=== PATIENT | female | born 1970 | race Caucasian/White ===

== ENCOUNTER 2025-07-03 00:46 | Outpatient (BNV) | payer OTHER, SELFPAY | END 2025-07-04 08:00 | PROVIDERS: Admitting Provider Psychiatry & Neurology Psychiatry; Visit Provider Internal Medicine Cardiovascular Disease | DX: Z13.6 Encounter for screening for cardiovascular disorders (principal) | CPT/HCPCS: 93010 ==

== ENCOUNTER 2025-07-03 00:46 | Inpatient (IN) | payer OTHER, SELFPAY ==
--- NOTE | ~2025-07-03 | XR_ITS ---
CLINICAL HISTORY: abd pain and constipation Single view of the abdomen. COMPARISON: None provided. FINDINGS: Surgical clips present along the pelvis at midline and on the left. Cholecystectomy clips. Normal bowel gas distention. No abnormal calcifications. No pneumoperitoneum identified. Moderate to large colonic stool burden. Vista left curvature of the mid lumbar spine. Moderate to advanced multilevel spondylosis. IMPRESSION: 1. Nonspecific nonobstructive bowel gas pattern. 2. Owbjmyut-wv-uumsd colonic stool burden. This document has been electronically signed by: Omar Baltazar MD on 07/07/2025 13:19:33
--- NOTE | ~2025-07-03 | US_ITS ---
CLINICAL HISTORY: bilateral LE edema. left worse than right Venous duplex ultrasound bilateral lower extremity COMPARISON: None provided. FINDINGS: The visualized deep veins are fully compressible with normal Doppler color flow and spectral tracings. No popliteal cyst. Mildly prominent but otherwise morphologically normal lymph nodes with normal fatty hilum present within the bilateral groin. IMPRESSION: 1. Negative for bilateral lower extremity deep vein thrombosis. This document has been electronically signed by: Omar Baltazar MD on 07/07/2025 13:52:10
--- OUTSIDE RECORDS SUMMARY | 2025-07-03 00:52 | XMS_ITS | Encounter Summary ---
Author Organization [facility] Address [address] [place] [address] Care Team Providers Care Rate Reviewer Name Role Phone Fly Patel MD Primary Care Provider + Suha Thompson Primary Care Provider [phone] Encounter Details Date Type Department Care Team (Late st Contact Info) Description 01/27/2007 Orders Only [facility] [address] [place] [id number] Rashmi Reina MD [address] [id number] Social History Tobacco Use Types Packs/Day Years Used Date Smoking Tobacco: Never Assessed Comments Unknown Sex and Gender Information Value Date Recorded Sex Assigned at Not on file Legal Sex Female 10:12 PM EDT Gender Identity Not on file Sexual Orientation Not on file documented as of this encounter Plan of Treatment Not on file documented as of this encounter Visit Diagnoses Not on filedocumented in this encounter Care Teams Rate Reviewer Relationship Specialty Start Date End Date Fly Patel MD PCP - General 03/08/06 11/11/17 Suha Thompson [address] [place] [id number] PCP - General Family Medicine 11/12/17 documented as of this encounter
--- OUTSIDE RECORDS SUMMARY | 2025-07-03 00:52 | XMS_ITS | Clinical Summary ---
Author Organization [facility] Address [address] [place] [address] Care Team Providers Care Archaeologist Name Role Phone Suha Thompson Primary Care Provider [phone] Allergies No known active allergies Medications HydroCHLOROthia zide 12.5 MG Cap 1 CAPSULE DAILY Active Topiramate (TOPAMAX) 100 MG Tab 1 TABLET TWICE DAILY Active Vortioxetine HBr (TRINTELLIX) 10 MG Tab 1 TABLET DAILY Active Omeprazole 10 MG CAPSULE DELAYED RELEASE 1 CAPSULE DAILY Active Buprenorphine HCl-Naloxone HCl (SUBOXONE) 12-3 MG FILM 1 CAPSULE DAILY Active BuPROPion HCl (WELLBUTRIN) 100 MG Tab 1 TABLET 3 TIMES DAILY Active ALPRAZolam 0.25 MG Tab TK 1 T PO QD PRN 1 11/03/2017 Active Active Problems No known active problems Social History Tobacco Use Types Packs/Day Years Used Date Smoking Tobacco: Former Smokeless Tobacco: Never Comments No Sex and Gender Information Value Date Recorded Sex Assigned at Not on file Legal Sex Female 10:12 PM EDT Gender Identity Not on file Sexual Orientation Not on file Last Filed Vital Signs Vital Sign Reading Time Taken Comments Blood Pressure 116/78 11/12/2017 5:55 PM EST Pulse 73 11/12/2017 5:55 PM EST Temperature 37.1 C (98.8 F) 11/12/2017 5:55 PM EST Respiratory Rate 16 11/12/2017 5:55 PM EST Oxygen Saturation - - Inhaled Oxygen Concentration - - Weight - - Height - - Body Mass Index - - Plan of Treatment Health Maintenance Due Date Last Done Comments Pap Smear 1985 DTaP/Tdap/Td (1 - Tdap) 1987 Hep B (1 of 3 - 19+ 3-dose series) 1988 Mammogram/Breast Imaging 2009 Pneumococcal 50+ years (1 of 1 - PCV) 2019 Zoster (Shingrix) (1 of 2) 2019 COVID-19 Vaccine (1 - 2024-2 6 season) 2025 Influenza (#1) 2025 Hepatitis C Screening Completed 03/08/2006 HPV Vaccine (No Doses Required) Completed Hep A Aged Out No longer eligi ble based on patient's age to complete this topic Hib Aged Out No longer eligi ble based on patient's age to complete this topic Meningococcal ACWY Aged Out No longer eligible based on patient's age to complete this topic Procedures * Due to [place] law, this organization might not be sharing negative HIV tests. Procedure Name Priority Date/Time Associated Diagnosis Comments HEPATITIS C ANTIBODY (EIA-2) Routine 03/08/2006 4:53 PM EDT from Last 3 Months or Most Recently Relevant to Health Maintenance Results * Due to [place] law, this organization might not be sharing negative HIV tests. * (ABNORMAL) HEPATITIS C ANTIBODY, SERUM (03/08/2006 4:53 PM EDT) HEPATITIS C AB REACTIVE(A ) NON-REACTI VE [facility] (CLIA# [id number]) 03/08/2006 4:53 PM EDT 03/08/2006 11:20 PM EDT Narrative [facility] (CLIA# [id number]) - 03/09/2006 7:52 AM EDT RANDOM Fly Patel MD LABORATORY Final Re sult [facility] (CLIA# [id number]) [address] [place] [address] from Last 3 Months or Most Recently Relevant to Health Maintenance Insurance MEDICAID Care Teams Archaeologist Relationship Specialty Start Date End Date Suha Thompson [address] [place] [address] [id number] PCP - General Family Medicine 11/12/17
[2025-07-03 01:10] VITALS: BP 154/97; PULSE 105; RESP 16; TEMP 36.5; O2SAT 94
[2025-07-03 01:15] VITALS: BMI 33.2
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
[2025-07-03 08:42] LABS: Alanine Aminotransferase 12 U/L (0-31); Albumin Level 4.4 g/dL (3.5-5.0); Alkaline Phosphatase 68 U/L (39-117); Anion Gap 12 (12-20); Aspartate Amino Transferase 23 U/L (5-31); Blood Urea Nitrogen 16 mg/dL (9-16); Calcium 9.4 mg/dL (8.4-10.2); Carbon Dioxide 24 mmol/L (22-29); Chloride 109 mmol/L (96-108); Cholesterol 148 mg/dL (<200); Creatinine Clr Calc Pharmacy 87.6; Estimated Glomerular Filt Rate > 60; HDL Cholesterol 47 mg/dL (>40); Potassium 3.8 mmol/L (3.3-5.1); Sodium 141 mmol/L (135-145); Total Protein 8.0 g/dL (6.5-8.0); Triglycerides 66 mg/dL (<150)
[2025-07-03 08:45] VITALS: BP 127/76; PULSE 86; RESP 14; TEMP 36.1; O2SAT 97
[2025-07-03 09:39] LABS: Free T4 (Free Thyroxine) 0.97 ng/dL (0.71-1.85)
--- NOTE | 2025-07-03 09:59 | ECG_ITS ---
Test Reason : S/P OD Blood Pressure : */* mmHG Vent. Rate : 98 BPM Atrial Rate : 98 BPM P-R Int : 178 ms QRS Dur : 96 ms QT Int : 388 ms P-R-T Axes : 70 11 67 degrees QTcB Int : 495 ms Normal sinus rhythm Prolonged QT Abnormal ECG No previous ECGs available Referred By: Camilo Rosenberg Electronically Signed By: MONA GORDILLO MD
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
[2025-07-03] MEDS: buPROPion HCl XL 300 MG TAB.ER.24H PO (11:25)
[2025-07-03 11:43] LABS: Magnesium 2.0 mg/dL (1.6-2.6)
[2025-07-03] MEDS: Dextroamphetamine/Amphetamine XR 10 MG CAP.ER.24H 30 MG PO (14:12)
--- NOTE | 2025-07-03 14:13 | PC.NURSE ---
Pt received catracho Adderall at 1413 d/t unavailability in the pyxus.
[2025-07-03] MEDS: Buprenorphine/Naloxone 4/1 mg FILM 1 FILM SUBLINGUAL ×2 (14:43→21:16)
[2025-07-03 15:17] LABS: Cannabinoid Screen Urine Not Detected (Not Detect)
[2025-07-03 20:00] VITALS: BP 119/76; PULSE 93; RESP 16; TEMP 36.9; O2SAT 98
[2025-07-03] MEDS: Magnesium Hydrox/Alum Hydrox 30 ML ORAL.SUSP PO (21:19)
--- NOTE | 2025-07-04 02:51 | PC.NURSE ---
Pt came to the nurses station to get help for her roommate. Upon entering the patient's room this nurse found a brown vape pen in the patient's bed. When asked the pt confirmed that the vape pen belonged to her. The pt would not state when and how she came in position of the vape pen. The pt was educated that the vape pen is contraband and that it will be removed from the unit and secured in the security off. The pt was notified that she can retrieve the vape pen from the security office upon discharge.
[2025-07-04 07:55] VITALS: BP 123/77; PULSE 74; RESP 18; TEMP 36.6; O2SAT 95
--- NOTE | 2025-07-04 08:00 | ECG_ITS ---
Test Reason : CHECK QT Blood Pressure : */* mmHG Vent. Rate : 78 BPM Atrial Rate : 78 BPM P-R Int : 142 ms QRS Dur : 90 ms QT Int : 392 ms P-R-T Axes : 67 8 53 degrees QTcB Int : 446 ms Normal sinus rhythm with sinus arrhythmia Normal ECG When compared with ECG of 03-Jul-2025 10:19, No significant change was found Referred By: Camilo Rosenberg Electronically Signed By: MONA GORDILLO MD
[2025-07-04] MEDS: Dextroamphetamine/Amphetamine XR 10 MG CAP.ER.24H 30 MG PO (08:01)
[2025-07-04] MEDS: Buprenorphine/Naloxone 4/1 mg FILM 1 FILM SUBLINGUAL ×2 (08:01→21:21)
[2025-07-04] MEDS: buPROPion HCl XL 300 MG TAB.ER.24H PO (08:02)
[2025-07-04] MEDS: Lidocaine 4 % Patch ADH..PATCH 1 PATCH TRANSDERMA (08:13)
[2025-07-04 08:45] LABS: Folate 6.7 ng/mL (> or = 4.0); Vitamin B12 362 pg/mL (200-900)
--- NOTE | 2025-07-04 13:28 | PC.NURSE ---
RN received report from Mikey MORE at 1325, pt being transferred to M3.
--- NOTE | 2025-07-04 13:37 | PC.NURSE ---
N2N report was given to Mickie nurse on M3. Patient transferred to M3 with her belongings, tablet no charge, red wallet and vape by security.
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
[2025-07-04 20:10] VITALS: BP 110/68; PULSE 99; RESP 20; TEMP 36.6; O2SAT 96
[2025-07-05] MEDS: Magnesium Hydrox/Alum Hydrox 30 ML ORAL.SUSP PO (00:43)
[2025-07-05 07:30] VITALS: BP 137/84; PULSE 106; RESP 14; TEMP 36.1; O2SAT 92
[2025-07-05] MEDS: Dextroamphetamine/Amphetamine XR 10 MG CAP.ER.24H 30 MG PO ×2 (09:02→14:30)
[2025-07-05] MEDS: buPROPion HCl XL 300 MG TAB.ER.24H PO (09:04)
[2025-07-05] MEDS: Buprenorphine/Naloxone 4/1 mg FILM 1 FILM SUBLINGUAL ×2 (09:07→20:16)
[2025-07-05] MEDS: Lidocaine 4 % Patch ADH..PATCH 1 PATCH TRANSDERMA (09:09)
--- NOTE | 2025-07-05 11:25 | PC.NURSE ---
Alberta declined flu vaccine
[2025-07-05 16:34] LABS: Lipase 24 U/L (8-78)
[2025-07-05 16:51] LABS: Ferritin 36 ng/mL (10-250); Thyroid Stimulating Hormone 2.45 uIU/mL (0.32-4.0)
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
[2025-07-05 17:25] LABS: Iron 47 mcg/dL (30-160); Percent Iron Saturation 15 % (15-50); Total Iron Binding Capacity 315 mcg/dL (228-428); Unsaturated Iron Binding 268 ug/dL
[2025-07-05 20:00] VITALS: BP 177/133; PULSE 97; RESP 16; TEMP 36; O2SAT 95
[2025-07-05 20:10] VITALS: BP 112/68; PULSE 96; RESP 16; TEMP 36; O2SAT 95
[2025-07-06 07:38] VITALS: BP 120/81; PULSE 102; RESP 16; TEMP 36.2; O2SAT 95
[2025-07-06 07:58] LABS: MANUAL DIFF FLAG NO
[2025-07-06 08:25] LABS: Hematocrit 36.4 % (37.0-47.0); Hemoglobin 11.2 g/dl (12.0-16.0); Imm Gran Abs Auto 0.02 X10*3/uL (0.00-0.03); Imm Gran Pct Auto 0.3 % (0.0-0.4); Lymphocytes Absolute Auto 1.9 X10*3/uL (1.2-4.9); Mean Corpuscular HGB Conc 30.8 g/dl (31.0-35.0); Mean Corpuscular Hemoglobin 27.9 pg (27.0-33.0); Mean Corpuscular Volume 90.5 fL (80.0-98.0); NRBC Abs Auto 0.000 X10*3/uL (0.0-0.012); NRBC Pct Auto 0.0 /100WBC (0.0-0.2); Platelet Count 300 X10*3/uL (160-400); Red Blood Count 4.02 X10*6/uL (4.20-5.50); White Blood Count 6.6 X10*3/uL (4.8-10.8)
[2025-07-06] MEDS: Dextroamphetamine/Amphetamine XR 10 MG CAP.ER.24H 30 MG PO ×2 (08:32→14:05)
[2025-07-06] MEDS: buPROPion HCl XL 300 MG TAB.ER.24H PO (08:33)
[2025-07-06] MEDS: Buprenorphine/Naloxone 4/1 mg FILM 1 FILM SUBLINGUAL ×2 (08:34→20:54)
--- NOTE | 2025-07-06 10:03 | PC.NURSE ---
On 07/04 gave Suboxone earlier upon patients request.
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
[2025-07-06 21:00] VITALS: BP 118/73; PULSE 93; RESP 18; TEMP 36.4; O2SAT 96
[2025-07-07 08:16] VITALS: BP 140/79; PULSE 95; RESP 16; TEMP 36.2; O2SAT 94
[2025-07-07] MEDS: buPROPion HCl XL 300 MG TAB.ER.24H PO (08:26)
[2025-07-07] MEDS: Dextroamphetamine/Amphetamine XR 10 MG CAP.ER.24H 30 MG PO ×2 (08:27→14:05)
[2025-07-07] MEDS: Buprenorphine/Naloxone 4/1 mg FILM 1 FILM SUBLINGUAL ×2 (08:27→20:40)
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
[2025-07-07 13:34] LABS: Erythrocyte Sedimentation Rate 60 MM/HR (0-20)
[2025-07-07 15:11] LABS: Total Protein Urine Random < 7 mg/dL (<12)
[2025-07-07 19:47] VITALS: BP 120/73; PULSE 96; RESP 16; TEMP 36.6; O2SAT 95
--- NOTE | 2025-07-08 08:10 | PM.EVENT ---
Event Note Date of Service: 07/08/25 Event Note: 54 year old women with a hx of Lower extremity edema. Seen and examined yesterday for LE edema and erythema. No infection so no indication of cellulitis, venous doppler negative for DVT, normal proteins in urine so unlikely nephrotic syndrome, normal BNP so no fluid overload. Discoloration likely from the swelling and seems to look better than yesterday. Flat, patchy red areas, no pruritis or opens wounds Plan Elevate extremities Compression therapy with BETH stockings one low dose of lasix 20 mg now Time Spent With Patient Time: Total time managing care of this patient today ____ minutes.
[2025-07-08 08:12] VITALS: BP 135/74; PULSE 94; RESP 18; TEMP 36; O2SAT 97
[2025-07-08] MEDS: Dextroamphetamine/Amphetamine XR 10 MG CAP.ER.24H 30 MG PO ×2 (08:13→14:38)
[2025-07-08] MEDS: buPROPion HCl XL 300 MG TAB.ER.24H PO (08:14)
[2025-07-08] MEDS: Buprenorphine/Naloxone 4/1 mg FILM 1 FILM SUBLINGUAL ×2 (08:15→20:49)
[2025-07-08] MEDS: Milk of Magnesia 30 ML ORAL.SUSP PO (08:17)
[2025-07-08 08:25] VITALS: BP 135/74; PULSE 94; RESP 18; TEMP 36; O2SAT 97
[2025-07-08 09:10] LABS: NT Pro B Type Natriuretic Pept 75.5 pg/mL (<300)
[2025-07-08 10:08] VITALS: BP 109/79; PULSE 96
--- NOTE | 2025-07-08 11:07 | P.PNPSI_ITS ---
Subjective Subjective Date of Service: 07/08/25 Reason For Visit: ptsd,si,mood disorder Subjective Notes: Conditional Voluntary Interim History: Patient was seen and discussed in rounds today. Records and plans were reviewed. She did sleep better with the increase of doxepin to 75 mg. She had 2 episodes of bedwetting. She was seen by the hospitalist yesterday for her leg swelling and DVT ruled out. She also has been observed to be more alert in the morning prior to taking her medications and then becoming sedated and tired. I discussed with her my concerns and will decrease her Valium to 2 mg t.i.d., cutting it in half. No SI. No other changes Review of Systems Review of Systems Lower extremity swelling specially on the left side Yes all other systems are reviewed and are negative Mental Status Exam Mental Status Exam Narrative: In today's visit she is somewhat drowsy, oriented and pleasant. Normal speech. Moderate eye contact. Appropriate affect. No acute signs of psychosis. No AVH. No SI. Cognitively is intact. Judgment is intact. Diagnostics Vital Signs (24Hr): Vital Signs - 24 hr 07/07/25 19:47 07/08/25 08:12 07/08/25 08:25 Temperature 97.8 F 96.8 F 96.8 F Pulse Rate 96 94 94 Respiratory Rate 16 18 18 Blood Pressure 120/73 135/74 135/74 Pulse Oximetry 95 97 97 Oxygen Delivery Method Room Air Room Air Room Air 07/08/25 10:08 Temperature Pulse Rate 96 Respiratory Rate Blood Pressure 109/79 Pulse Oximetry Oxygen Delivery Method BMI result Body Mass Index 33.2 Labs 07/06/25 07:49 07/03/25 08:00 Labs: Laboratory Results - last 48 hr 07/07/25 07/07/25 07/08/25 12:23 14:30 08:42 ESR 60 H NT-Pro-B Natriuret Pep 75.5 U Random Total Protein < 7 Medications Medications Current Medications Acetaminophen (Acetaminophen 325 Mg Tablet) 650 mg PO Q6H PRN PRN Reason: Headache/Pain, Scale 1-10 Last Admin: 07/07/25 20:43 Dose: 650 mg Al Hydroxide/Mg Hydroxide (Magnesium Hydrox/Alum Hydrox 30 Ml Oral.Susp) 30 ml PO Q6H PRN PRN Reason: Heartburn/Nausea Last Admin: 07/05/25 00:43 Dose: 30 ml Albuterol Sulfate (Albuterol Sulfate 90 Mcg 8 Gm Inhaler) 2 puff INHALE RQ4H PRN PRN Reason: Shortness of Breath/Wheezing Amphetamine/Dextroamphetamine (Dextroamphetamine/Amphetamine Xr 10 Mg Cap.Er.24h) 30 mg PO BID@0830,1430 [facility] Last Admin: 07/08/25 08:13 Dose: 30 mg Buprenorphine/Naloxone (Buprenorphine/Naloxone 4/1 Mg Film) 1 film SUBLINGUAL BID [facility] Last Admin: 07/08/25 08:15 Dose: 1 film Bupropion HCl (Bupropion Hcl Xl 300 Mg Tab.Er.24h) 300 mg PO DAILY [facility] Last Admin: 07/08/25 08:14 Dose: 300 mg Calcium Carbonate (Calcium Carbonate 750 Mg Tab.Chew) 750 mg PO Q4H PRN PRN Reason: Heartburn Last Admin: 07/07/25 18:18 Dose: 750 mg Diazepam (Diazepam 2 Mg Tablet) 2 mg PO TID [facility] Docusate Sodium (Docusate Sodium 100 Mg Capsule) 100 mg PO BID [facility] Last Admin: 07/08/25 08:14 Dose: 100 mg Doxepin HCl (Doxepin Hcl 25 Mg Capsule) 75 mg PO BEDTIME [facility] Last Admin: 07/07/25 20:42 Dose: 75 mg Escitalopram Oxalate (Escitalopram Oxalate 20 Mg Tablet) 20 mg PO DAILY [facility] Last Admin: 07/08/25 08:15 Dose: 20 mg Gabapentin (Gabapentin 300 Mg Capsule) 300 mg PO BEDTIME [facility] Last Admin: 07/07/25 20:43 Dose: 300 mg Lamotrigine (Lamotrigine 25 Mg Tablet) 25 mg PO BEDTIME [facility] Last Admin: 07/07/25 20:43 Dose: 25 mg Lidocaine (Lidocaine 4 % Patch Adh..Patch) 1 patch TRANSDERMA DAILY [facility] Last Admin: 07/08/25 08:18 Dose: Not Given Magnesium Hydroxide (Milk Of Magnesia 30 Ml Oral.Susp) 30 ml PO DAILY PRN PRN Reason: Constipation Last Admin: 07/08/25 08:17 Dose: 30 ml Nicotine (Nicotine 21 Mg Patch.Td24) 21 mg TRANSDERMA DAILY PRN PRN Reason: smoking cessation Nicotine Polacrilex (Nicotine Polacrilex 2 Mg Gum) 4 mg BUCCAL Q2H PRN PRN Reason: Nicotine Cravings Omeprazole (Omeprazole 20 Mg Capsule.Dr) 20 mg PO BID@0630,1630 [facility] Last Admin: 07/08/25 06:08 Dose: 20 mg Ondansetron HCl (Ondansetron Odt 4 Mg Tab.Rapdis) 4 mg TRANSLINGU Q4H PRN PRN Reason: Nausea and Vomiting Last Admin: 07/05/25 20:18 Dose: 4 mg Senna (Sennosides 8.6 Mg Tablet) 8.6 mg PO DAILY PRN PRN Reason: Constipation Topiramate (Topiramate 25 Mg Tablet) 50 mg PO BID [facility] Last Admin: 07/08/25 08:15 Dose: 50 mg Trazodone HCl (Trazodone Hcl 50 Mg Tablet) 50 mg PO BEDTIME MRX1 PRN PRN Reason: Insomnia Last Admin: 07/07/25 20:43 Dose: 50 mg Allergies Allergies Allergy/AdvReac Type Severity Reaction Status Date / Time lisinopril Allergy Anaphylaxis Verified 07/03/25 02:48 Assessment & Plan Assessment & Plan (1) Bipolar 2 disorder: Status: Acute Code(s): F31.81 - Bipolar II disorder (2) Chronic post-traumatic stress disorder (PTSD): Status: Acute Code(s): F43.12 - Post-traumatic stress disorder, chronic Plan 54 year old women with LE edema and abdominal pain with associated nausea Abd pain and constipation KUB showing stool burden Try mag citrate and continue colace LE edema No pain Edema and patchy erythema CRP and ESR pending Check BNP check UA tot protein LE erythema could be from fluid to LE no itchiness, open areas does not appear to be cellulitis 07/08: Continue current regimen and plans. Decrease Valium to 2 mg t.i.d. Patient educated on: medication risk/benefits Reason for continued inpatient stay Substantial Risk for: med/psych decompensation Time Spent With Patient Time: Total time managing care of this patient today ____ minutes.
[2025-07-08] MEDS: Nicotine Polacrilex Lozenge 4 MG LOZENGE BUCCAL (16:55)
[2025-07-08 20:00] VITALS: BP 118/71; PULSE 105; RESP 16; TEMP 37; O2SAT 94
[2025-07-09 07:54] VITALS: BP 139/81; PULSE 90; RESP 20; TEMP 36.8; O2SAT 97
[2025-07-09] MEDS: buPROPion HCl XL 300 MG TAB.ER.24H PO (08:44)
[2025-07-09] MEDS: Dextroamphetamine/Amphetamine XR 10 MG CAP.ER.24H 30 MG PO ×2 (08:45→15:19)
[2025-07-09] MEDS: Buprenorphine/Naloxone 4/1 mg FILM 1 FILM SUBLINGUAL ×2 (08:47→21:12)
--- NOTE | 2025-07-09 09:09 | HO.PSYCHPN ---
Subjective Subjective Date of Service: 07/09/25 Reason For Visit: ptsd,si,mood disorder Subjective Notes: Conditional Voluntary Interim History: Patient was seen and discussed in rounds today. Records and plans were reviewed. She has been stable and is doing better. Her left leg swelling and edema is slightly improved but still visibly present. Eating and sleeping adequately. No behavioral issues. No SI. No changes were made today Review of Systems Review of Systems Lower extremity edema Yes all other systems are reviewed and are negative Mental Status Exam Mental Status Exam Narrative: In today's visit she is somewhat drowsy, oriented and pleasant. Normal speech. Moderate eye contact. Appropriate affect. No acute signs of psychosis. No AVH. No SI. Cognitively is intact. Judgment is intact. Diagnostics Vital Signs (24Hr): Vital Signs - 24 hr 07/08/25 10:08 07/08/25 20:00 07/09/25 07:54 Temperature 98.6 F 98.2 F Pulse Rate 96 105 H 90 Respiratory Rate 16 20 Blood Pressure 109/79 118/71 139/81 Pulse Oximetry 94 97 Oxygen Delivery Method Room Air Room Air BMI result Body Mass Index 33.2 Labs 07/06/25 07:49 07/03/25 08:00 Labs: Laboratory Results - last 48 hr 07/07/25 07/07/25 07/08/25 12:23 14:30 08:42 ESR 60 H NT-Pro-B Natriuret Pep 75.5 U Random Total Protein < 7 Medications Medications Current Medications Acetaminophen (Acetaminophen 325 Mg Tablet) 650 mg PO Q6H PRN PRN Reason: Headache/Pain, Scale 1-10 Last Admin: 07/07/25 20:43 Dose: 650 mg Al Hydroxide/Mg Hydroxide (Magnesium Hydrox/Alum Hydrox 30 Ml Oral.Susp) 30 ml PO Q6H PRN PRN Reason: Heartburn/Nausea Last Admin: 07/05/25 00:43 Dose: 30 ml Albuterol Sulfate (Albuterol Sulfate 90 Mcg 8 Gm Inhaler) 2 puff INHALE RQ4H PRN PRN Reason: Shortness of Breath/Wheezing Amphetamine/Dextroamphetamine (Dextroamphetamine/Amphetamine Xr 10 Mg Cap.Er.24h) 30 mg PO BID@0830,1430 [facility] Last Admin: 07/09/25 08:45 Dose: 30 mg Buprenorphine/Naloxone (Buprenorphine/Naloxone 4/1 Mg Film) 1 film SUBLINGUAL BID [facility] Last Admin: 07/09/25 08:47 Dose: 1 film Bupropion HCl (Bupropion Hcl Xl 300 Mg Tab.Er.24h) 300 mg PO DAILY [facility] Last Admin: 07/09/25 08:44 Dose: 300 mg Calcium Carbonate (Calcium Carbonate 750 Mg Tab.Chew) 750 mg PO Q4H PRN PRN Reason: Heartburn Last Admin: 07/07/25 18:18 Dose: 750 mg Diazepam (Diazepam 2 Mg Tablet) 2 mg PO TID [facility] Last Admin: 07/09/25 08:45 Dose: 2 mg Docusate Sodium (Docusate Sodium 100 Mg Capsule) 100 mg PO BID [facility] Last Admin: 07/09/25 08:45 Dose: 100 mg Doxepin HCl (Doxepin Hcl 25 Mg Capsule) 75 mg PO BEDTIME [facility] Last Admin: 07/08/25 20:51 Dose: 75 mg Escitalopram Oxalate (Escitalopram Oxalate 20 Mg Tablet) 20 mg PO DAILY [facility] Last Admin: 07/09/25 08:44 Dose: 20 mg Gabapentin (Gabapentin 300 Mg Capsule) 300 mg PO BEDTIME [facility] Last Admin: 07/08/25 20:50 Dose: 300 mg Lamotrigine (Lamotrigine 25 Mg Tablet) 25 mg PO BEDTIME [facility] Last Admin: 07/08/25 20:51 Dose: 25 mg Magnesium Hydroxide (Milk Of Magnesia 30 Ml Oral.Susp) 30 ml PO DAILY PRN PRN Reason: Constipation Last Admin: 07/08/25 08:17 Dose: 30 ml Nicotine (Nicotine 21 Mg Patch.Td24) 21 mg TRANSDERMA DAILY PRN PRN Reason: smoking cessation Nicotine Polacrilex (Nicotine Polacrilex Lozenge 4 Mg Lozenge) 4 mg BUCCAL Q2H PRN PRN Reason: Nicotine Cravings Last Admin: 07/08/25 16:55 Dose: 4 mg Omeprazole (Omeprazole 20 Mg Capsule.Dr) 20 mg PO BID@0630,1630 [facility] Last Admin: 07/09/25 06:01 Dose: 20 mg Ondansetron HCl (Ondansetron Odt 4 Mg Tab.Rapdis) 4 mg TRANSLINGU Q4H PRN PRN Reason: Nausea and Vomiting Last Admin: 07/05/25 20:18 Dose: 4 mg Senna (Sennosides 8.6 Mg Tablet) 8.6 mg PO DAILY PRN PRN Reason: Constipation Topiramate (Topiramate 25 Mg Tablet) 50 mg PO BID [facility] Last Admin: 07/09/25 08:44 Dose: 50 mg Trazodone HCl (Trazodone Hcl 50 Mg Tablet) 50 mg PO BEDTIME MRX1 PRN PRN Reason: Insomnia Last Admin: 07/08/25 20:51 Dose: 50 mg Allergies Allergies Allergy/AdvReac Type Severity Reaction Status Date / Time lisinopril Allergy Anaphylaxis Verified 07/03/25 02:48 Assessment & Plan Assessment & Plan (1) Bipolar 2 disorder: Status: Acute Code(s): F31.81 - Bipolar II disorder (2) Chronic post-traumatic stress disorder (PTSD): Status: Acute Code(s): F43.12 - Post-traumatic stress disorder, chronic Plan 54 year old women with LE edema and abdominal pain with associated nausea Abd pain and constipation KUB showing stool burden Try mag citrate and continue colace LE edema No pain Edema and patchy erythema CRP and ESR pending Check BNP check UA tot protein LE erythema could be from fluid to LE no itchiness, open areas does not appear to be cellulitis 07/08: Continue current regimen and plans. Decrease Valium to 2 mg t.i.d. 07/09: Continue current regimen and plans. Reason for continued inpatient stay Substantial Risk for: med/psych decompensation Time Spent With Patient Time: Total time managing care of this patient today ____ minutes.
[2025-07-09 21:08] VITALS: BP 105/59; PULSE 100; RESP 18; TEMP 36.7; O2SAT 100
[2025-07-10 08:00] VITALS: BP 98/64; PULSE 82; RESP 18; TEMP 36.4; O2SAT 98
[2025-07-10] MEDS: Dextroamphetamine/Amphetamine XR 10 MG CAP.ER.24H 30 MG PO ×2 (08:34→15:19)
[2025-07-10] MEDS: buPROPion HCl XL 300 MG TAB.ER.24H PO (08:34)
[2025-07-10] MEDS: Buprenorphine/Naloxone 4/1 mg FILM 1 FILM SUBLINGUAL (08:35)
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
--- NOTE | 2025-07-10 08:37 | HO.PSYCHPN ---
Subjective Subjective Date of Service: 07/10/25 Reason For Visit: ptsd,si,mood disorder Diagnostics Vital Signs (24Hr): Vital Signs - 24 hr 07/09/25 21:08 Temperature 98.1 F Pulse Rate 100 Respiratory Rate 18 Blood Pressure 105/59 L Pulse Oximetry 100 Oxygen Delivery Method Room Air BMI result Body Mass Index 33.2 Labs 07/06/25 07:49 07/03/25 08:00 Labs: Laboratory Results - last 48 hr 07/07/25 07/08/25 12:23 08:42 C-React Prot High Sens >20.0 H NT-Pro-B Natriuret Pep 75.5 Medications Medications Current Medications Acetaminophen (Acetaminophen 325 Mg Tablet) 650 mg PO Q6H PRN PRN Reason: Headache/Pain, Scale 1-10 Last Admin: 07/10/25 06:13 Dose: 650 mg Al Hydroxide/Mg Hydroxide (Magnesium Hydrox/Alum Hydrox 30 Ml Oral.Susp) 30 ml PO Q6H PRN PRN Reason: Heartburn/Nausea Last Admin: 07/05/25 00:43 Dose: 30 ml Albuterol Sulfate (Albuterol Sulfate 90 Mcg 8 Gm Inhaler) 2 puff INHALE RQ4H PRN PRN Reason: Shortness of Breath/Wheezing Amphetamine/Dextroamphetamine (Dextroamphetamine/Amphetamine Xr 10 Mg Cap.Er.24h) 30 mg PO BID@0830,1430 [facility] Last Admin: 07/09/25 15:19 Dose: 30 mg Buprenorphine/Naloxone (Buprenorphine/Naloxone 4/1 Mg Film) 1 film SUBLINGUAL BID [facility] Last Admin: 07/09/25 21:12 Dose: 1 film Bupropion HCl (Bupropion Hcl Xl 300 Mg Tab.Er.24h) 300 mg PO DAILY [facility] Last Admin: 07/09/25 08:44 Dose: 300 mg Calcium Carbonate (Calcium Carbonate 750 Mg Tab.Chew) 750 mg PO Q4H PRN PRN Reason: Heartburn Last Admin: 07/07/25 18:18 Dose: 750 mg Diazepam (Diazepam 2 Mg Tablet) 2 mg PO TID [facility] Last Admin: 07/09/25 21:12 Dose: 2 mg Docusate Sodium (Docusate Sodium 100 Mg Capsule) 100 mg PO BID [facility] Last Admin: 07/09/25 21:13 Dose: Not Given Doxepin HCl (Doxepin Hcl 25 Mg Capsule) 75 mg PO BEDTIME [facility] Last Admin: 07/09/25 21:12 Dose: 75 mg Escitalopram Oxalate (Escitalopram Oxalate 20 Mg Tablet) 20 mg PO DAILY [facility] Last Admin: 07/09/25 08:44 Dose: 20 mg Gabapentin (Gabapentin 300 Mg Capsule) 300 mg PO BEDTIME [facility] Last Admin: 07/09/25 21:12 Dose: 300 mg Lamotrigine (Lamotrigine 25 Mg Tablet) 25 mg PO BEDTIME [facility] Last Admin: 07/09/25 21:12 Dose: 25 mg Magnesium Hydroxide (Milk Of Magnesia 30 Ml Oral.Susp) 30 ml PO DAILY PRN PRN Reason: Constipation Last Admin: 07/08/25 08:17 Dose: 30 ml Nicotine (Nicotine 21 Mg Patch.Td24) 21 mg TRANSDERMA DAILY PRN PRN Reason: smoking cessation Nicotine Polacrilex (Nicotine Polacrilex Lozenge 4 Mg Lozenge) 4 mg BUCCAL Q2H PRN PRN Reason: Nicotine Cravings Last Admin: 07/08/25 16:55 Dose: 4 mg Omeprazole (Omeprazole 20 Mg Capsule.Dr) 20 mg PO BID@0630,1630 [facility] Last Admin: 07/10/25 06:09 Dose: 20 mg Ondansetron HCl (Ondansetron Odt 4 Mg Tab.Rapdis) 4 mg TRANSLINGU Q4H PRN PRN Reason: Nausea and Vomiting Last Admin: 07/05/25 20:18 Dose: 4 mg Senna (Sennosides 8.6 Mg Tablet) 8.6 mg PO DAILY PRN PRN Reason: Constipation Topiramate (Topiramate 25 Mg Tablet) 50 mg PO BID [facility] Last Admin: 07/09/25 21:12 Dose: 50 mg Trazodone HCl (Trazodone Hcl 50 Mg Tablet) 50 mg PO BEDTIME MRX1 PRN PRN Reason: Insomnia Last Admin: 07/08/25 20:51 Dose: 50 mg Allergies Allergies Allergy/AdvReac Type Severity Reaction Status Date / Time lisinopril Allergy Anaphylaxis Verified 07/03/25 02:48 Assessment & Plan Assessment & Plan (1) Bipolar 2 disorder: Status: Acute Code(s): F31.81 - Bipolar II disorder (2) Chronic post-traumatic stress disorder (PTSD): Status: Acute Code(s): F43.12 - Post-traumatic stress disorder, chronic Plan 54 year old women with LE edema and abdominal pain with associated nausea Abd pain and constipation KUB showing stool burden Try mag citrate and continue colace LE edema No pain Edema and patchy erythema CRP and ESR pending Check BNP check UA tot protein LE erythema could be from fluid to LE no itchiness, open areas does not appear to be cellulitis 07/08: Continue current regimen and plans. Decrease Valium to 2 mg t.i.d. 07/09: Continue current regimen and plans. Time Spent With Patient Time: Total time managing care of this patient today ____ minutes.
--- NOTE | 2025-07-10 10:58 | P.PNIM_ITS ---
Subjective Subjective Date of Service: 07/10/25 Interval History: Patient continues to report increased pain and swelling to her left leg. Leg is painful, swelling as and redness or extending to behind the knee. Patient reports this has happened to her in the past and usually resolves on its own. She denies any fever or chills. Ultrasound was negative for DVT, workup negative for nephrotic syndrome, no evidence of fluid overload. Legs more painful and red per nursing. Per patient she is unable to bear weight as well, not wearing compression due to pain. Review of Systems Denies any shortness of breath, chest pain, headaches, dysuria, abdominal pain or discomfort, nausea, vomiting or diarrhea. Denies fever or chills Physical Exam 2 Exam: Exam: CONST: Alert and oriented, in NAD. Well nourished HEENT: Normocephalic, atraumatic, MMM, Eyes clear, Neck supple RESP: Lungs clear, RRR even and regular HEART:,RRR, S1, S2. No edema GI:Abdomen Soft NT, ND. + BS times four :Deferred SKIN: Warm dry and intact, no visible lesions or rashes NEURO:CN II-XII Intact bilaterally, Sensation intact. Speech clear PSYCH: Normal affect Extremities: Bilateral lower legs swelling, left greater than right positive redness and warmth and pain to left leg extending behind the knee Vital Signs: Vital Signs: Last Vital Signs Temp 98.1 F 07/09/25 21:08 Pulse 100 07/09/25 21:08 Resp 18 07/09/25 21:08 BP 105/59 L 07/09/25 21:08 Pulse Ox 100 07/09/25 21:08 O2 Del Method Room Air 07/09/25 21:08 BMI result Body Mass Index 33.2 Objective Data Active Medications Acetaminophen (Acetaminophen 325 Mg Tablet) 650 mg PO Q6H PRN PRN Reason: Headache/Pain, Scale 1-10 Last Admin: 07/10/25 06:13 Dose: 650 mg Documented By: SALMOD Al Hydroxide/Mg Hydroxide (Magnesium Hydrox/Alum Hydrox 30 Ml Oral.Susp) 30 ml PO Q6H PRN PRN Reason: Heartburn/Nausea Last Admin: 07/05/25 00:43 Dose: 30 ml Documented By: ANNETTE Albuterol Sulfate (Albuterol Sulfate 90 Mcg 8 Gm Inhaler) 2 puff INHALE RQ4H PRN PRN Reason: Shortness of Breath/Wheezing Amphetamine/Dextroamphetamine (Dextroamphetamine/Amphetamine Xr 10 Mg Cap.Er.24h) 30 mg PO BID@0830,1430 [facility] Last Admin: 07/10/25 08:34 Dose: 30 mg Documented By: MALLORY Buprenorphine/Naloxone (Buprenorphine/Naloxone 4/1 Mg Film) 1 film SUBLINGUAL BID [facility] Last Admin: 07/10/25 08:35 Dose: 1 film Documented By: MALLORY Bupropion HCl (Bupropion Hcl Xl 300 Mg Tab.Er.24h) 300 mg PO DAILY [facility] Last Admin: 07/10/25 08:34 Dose: 300 mg Documented By: MALLORY Calcium Carbonate (Calcium Carbonate 750 Mg Tab.Chew) 750 mg PO Q4H PRN PRN Reason: Heartburn Last Admin: 07/07/25 18:18 Dose: 750 mg Documented By: TOMER Diazepam (Diazepam 2 Mg Tablet) 2 mg PO TID [facility] Last Admin: 07/10/25 08:34 Dose: 2 mg Documented By: MALLORY Docusate Sodium (Docusate Sodium 100 Mg Capsule) 100 mg PO BID [facility] Last Admin: 07/10/25 08:34 Dose: 100 mg Documented By: MALLORY Doxepin HCl (Doxepin Hcl 25 Mg Capsule) 75 mg PO BEDTIME [facility] Last Admin: 07/09/25 21:12 Dose: 75 mg Documented By: MALLORY Escitalopram Oxalate (Escitalopram Oxalate 20 Mg Tablet) 20 mg PO DAILY [facility] Last Admin: 07/10/25 08:34 Dose: 20 mg Documented By: MALLORY Gabapentin (Gabapentin 300 Mg Capsule) 300 mg PO BEDTIME [facility] Last Admin: 07/09/25 21:12 Dose: 300 mg Documented By: MALLORY Lamotrigine (Lamotrigine 25 Mg Tablet) 25 mg PO BEDTIME [facility] Last Admin: 07/09/25 21:12 Dose: 25 mg Documented By: MALLORY Magnesium Hydroxide (Milk Of Magnesia 30 Ml Oral.Susp) 30 ml PO DAILY PRN PRN Reason: Constipation Last Admin: 07/08/25 08:17 Dose: 30 ml Documented By: TOMER Nicotine (Nicotine 21 Mg Patch.Td24) 21 mg TRANSDERMA DAILY PRN PRN Reason: smoking cessation Nicotine Polacrilex (Nicotine Polacrilex Lozenge 4 Mg Lozenge) 4 mg BUCCAL Q2H PRN PRN Reason: Nicotine Cravings Last Admin: 07/08/25 16:55 Dose: 4 mg Documented By: JOANNE Omeprazole (Omeprazole 20 Mg Capsule.Dr) 20 mg PO BID@0630,1630 [facility] Last Admin: 07/10/25 06:09 Dose: 20 mg Documented By: SALJUSTYN Ondansetron HCl (Ondansetron Odt 4 Mg Tab.Rapdis) 4 mg TRANSLINGU Q4H PRN PRN Reason: Nausea and Vomiting Last Admin: 07/05/25 20:18 Dose: 4 mg Documented By: LIARDIP Senna (Sennosides 8.6 Mg Tablet) 8.6 mg PO DAILY PRN PRN Reason: Constipation Topiramate (Topiramate 25 Mg Tablet) 50 mg PO BID [facility] Last Admin: 07/10/25 08:34 Dose: 50 mg Documented By: MALLORY Trazodone HCl (Trazodone Hcl 50 Mg Tablet) 50 mg PO BEDTIME MRX1 PRN PRN Reason: Insomnia Last Admin: 07/08/25 20:51 Dose: 50 mg Documented By: FELIPEK Labs 07/06/25 07:49 07/03/25 08:00 Labs: Laboratory Results - last 24 hr 07/07/25 12:23 C-React Prot High Sens >20.0 H Assessment and Plan (1) Cellulitis: Status: Acute (2) Left leg cellulitis: Status: Acute Plan 54-year-old female with a past medical history listed below presented to the ED at [facility] after reported suicide attempt via intentional ingestion of home medications. Major depressive disorder/PTSD/anxiety/bulimia/Borderline personality disorder/multiple prior suicide attempts/intentional overdose/EtOH disorder/GERRY on suboxone Treatment per psychiatric team Previously taking Suboxone, defer to psychiatric team. ?Cellulitis left leg Start Keflex 500 mg q.i.d. for 10 days Tylenol for pain Notify provider if no improvement. Patient will need outpatient vascular evaluation. 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 Will follow as needed, please notify medical provider with any changes in condition or concerns. Quality Stroke Does the patient have a stroke diagnosis?: No VTE Prior VTE?: No VTE Risk Level:: Medical - low VTE Device Contraindication: Treatment Not Indicated VTE Drug Contraindication: Treatment Not Indicated
[2025-07-10 19:39] VITALS: BP 111/67; PULSE 110; RESP 16; TEMP 37.2
[2025-07-11 07:49] VITALS: BP 139/96; PULSE 95; RESP 18; TEMP 36.2; O2SAT 99
[2025-07-11] MEDS: buPROPion HCl XL 300 MG TAB.ER.24H PO (08:47)
[2025-07-11] MEDS: Buprenorphine/Naloxone 4/1 mg FILM 1 FILM SUBLINGUAL (08:47)
[2025-07-11] MEDS: Dextroamphetamine/Amphetamine XR 10 MG CAP.ER.24H 30 MG PO (08:47)
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
--- NOTE | 2025-07-11 12:21 | PC.NURSE ---
[place]ta engages easily. Mood continues depressed, anxious, denies SI/HI at time of discharge assessment. All discharge paperwork reviewed with patient, reports understanding. Discharge follow up appointments reviewed, reports understanding. Aware to call ENDOCRINOLOGY NURSE for appointment, out patient therapist number provided if interested in services. Discharge medications reviewed reports understanding. Crisis numbers provided, resource booklet provided to patient upon discharge. All belongings taken with patient upon discharge.
== END 2025-07-11 11:44 | disposition home or self-care (01) | DRG 753 ==
LOC: HO.PGERI 07-04 07:57 → HO.PADLT16 07-04 13:43
PROVIDERS: Nurse Practitioner Acute Care; Psychiatry & Neurology Psychiatry; Admitting Provider Psychiatry & Neurology Psychiatry; Visit Provider Psychiatry & Neurology Psychiatry
DX: F31.81 Bipolar II disorder (principal); E53.8 Deficiency of other specified B group vitamins; F43.12 Post-traumatic stress disorder, chronic; I10 Essential (primary) hypertension; F60.3 Borderline personality disorder; M79.7 Fibromyalgia; R94.31 Abnormal electrocardiogram [ECG] [EKG]; F90.9 Attention-deficit hyperactivity disorder, unspecified type; Z91.51 Personal history of suicidal behavior; Z87.891 Personal history of nicotine dependence; Z79.899 Other long term (current) drug therapy
CPT/HCPCS: 36415; 74018; 80053; 80061; 80307; 82607; 82728; 82746; 83036; 83520; 83540; 83690; 83735; 83880; 84156; 84439; 84443; 85025; 85652; 86141; 86376; 93005; 93970

== ENCOUNTER 2025-07-03 00:46 | Outpatient (BNV) | payer OTHER, SELFPAY | END 2025-07-07 12:00 | PROVIDERS: Admitting Provider Psychiatry & Neurology Psychiatry; Visit Provider Radiology Diagnostic Radiology | DX: R60.0 Localized edema (principal); K59.00 Constipation, unspecified | CPT/HCPCS: 74018; 93970 ==

== ENCOUNTER 2025-07-03 00:46 | Outpatient (BNV) | payer OTHER, SELFPAY | END 2025-07-03 09:59 | PROVIDERS: Admitting Provider Psychiatry & Neurology Psychiatry; Visit Provider Internal Medicine Cardiovascular Disease | DX: R94.31 Abnormal electrocardiogram [ECG] [EKG] (principal); T50.901A Poisoning by unspecified drugs, medicaments and biological substances, accidental (unintentional), initial encounter | CPT/HCPCS: 93010 ==

== ENCOUNTER → 2025-07-03 00:46 | Outpatient (BNV) | payer OTHER, SELFPAY | PROVIDERS: Admitting Provider Psychiatry & Neurology Psychiatry; Visit Provider Psychiatry & Neurology Psychiatry | DX: F43.12 Post-traumatic stress disorder, chronic (principal); F31.81 Bipolar II disorder; F90.9 Attention-deficit hyperactivity disorder, unspecified type; E53.8 Deficiency of other specified B group vitamins | CPT/HCPCS: 99223 ==

== ENCOUNTER → 2025-07-03 00:46 | Outpatient (BNV) | payer OTHER, SELFPAY | PROVIDERS: Admitting Provider Psychiatry & Neurology Psychiatry; Visit Provider Psychiatry & Neurology Psychiatry | DX: F31.81 Bipolar II disorder (principal); F43.12 Post-traumatic stress disorder, chronic; F90.9 Attention-deficit hyperactivity disorder, unspecified type; E53.8 Deficiency of other specified B group vitamins | CPT/HCPCS: 99233 ==

== ENCOUNTER → 2025-07-03 00:46 | Outpatient (BNV) | payer OTHER, SELFPAY | PROVIDERS: Admitting Provider Psychiatry & Neurology Psychiatry; Visit Provider Nurse Practitioner Family | DX: L03.90 Cellulitis, unspecified (principal); L03.116 Cellulitis of left lower limb | CPT/HCPCS: 99221; 99223; 99231; 99499 ==